=== PATIENT | male | born 1980 | race Caucasian/White ===

== ENCOUNTER → 2023-10-31 15:24 | Outpatient (REF) | payer OTHER, SELFPAY | LOC: ANHLAB 15:24 | PROVIDERS: PCP Family Medicine; Visit Provider Plastic Surgery | DX: D23.121 Other benign neoplasm of skin of left upper eyelid, including canthus (principal); L90.5 Scar conditions and fibrosis of skin; M60.271 Foreign body granuloma of soft tissue, not elsewhere classified, right ankle and foot | CPT/HCPCS: 88305 ==